=== PATIENT | female | born 1950 | race Caucasian/White ===

== ENCOUNTER 2024-03-28 22:31 | Emergency (ER) | payer MEDICARE, SELFPAY ==
[2024-03-28 22:33] VITALS: BP 141/70
[2024-03-28 22:50] LABS: % Basophils 1.2 % (0-2); % Eosinophils 4.8 % (0-6); % Immature Granulocytes 0.2 % (0-0.5); % Lymphocytes 45.5 % (20.5-51.1); % Monocytes 7.2 % (1.7-9.3); % Neutrophils 41.1 % (42.2-75.2); Absolute Basophils 0.1 10^3/uL (0-0.2); Absolute Eosinophils 0.2 10^3/uL (0-0.7); Absolute Lymphocytes 2.3 10^3/uL (1.2-3.4); Absolute Monocytes 0.4 10^3/uL (0.1-0.6); Absolute Neutrophils 2.1 10^3/uL (1.4-6.5); Hemoglobin 13.9 g/dL (12.0-16.0); Mean Corp Hgb Conc. 35.6 g/dL (33.0-37.0); Mean Corpuscular Hgb 34.2 pg (27.0-31.0); Mean Corpuscular Volume 96.1 fL (81.0-99.0); Mean Platelet Volume 9.4 fL (7.4-10.4); Nucleated Red Blood Cells % 0 %; Platelet Count 243 10^3/uL (130-400); Red Blood Cell Count 4.06 10^6/uL (4.20-5.40)
[2024-03-28 23:00] VITALS: BP 141/62
--- NOTE | 2024-03-28 23:03 | ED.GENMED ---
History of Present Illness
<Qiana Diehl MD, Resident - Last Filed: 03/29/24 03:25>
General
Chief Complaint: Heart Rate Problem
Source: patient and family
Exam Limitations: none
Time Seen by Provider: 03/28/24 22:54
Travel History
Have you traveled to any high risk areas for coronavirus over the past 14 days?: No
Have you had any contact with someone who has COVID-19?: No
Do you have any symptoms of coronavirus? Fever > 100 degrees, chills, cough, shortness of breath, sore throat, loss of taste or smell, muscle aches, or headache?: No
History of Present Illness
History of Present Illness:
73-year-old female who never saw a physician for the last 30 years, no known significant past medical history [place] Patient had a syncopal episode while sitting down. Patient stated that she did not have any preceding
warning signs or symptoms, was sitting down in a chair playing with her grandchildren, drinking her 4/fifth glass of wine and was suddenly noted to be lethargic by her family. Patient was not aware of her syncopal episode however family states that
they noticed her to be lethargic and when they saw her she was unresponsive, rolling her eyes, with cold and clammy extremities and an open mouth but no tongue biting or shaking of limbs. They took her down from the chair laid her on the floor and
tried to check for jugular pulse and wake her up. She eventually woke up and was able to answer all orientation questions right. There is no bowel or bladder incontinence during the episode. The total time between onset of episode to when she
woke up was about 2 to 5 minutes. She denies having chest pain, palpitations, shortness of breath on exertion, orthopnea, PND, lightheadedness, dizziness, headaches, blurring of vision, sick contacts around her. Also denies any recent change in
the bladder habits or bowel habits.
No similar episodes in the past.
If applicable-neuro sx onset
Onset of symptoms known: Yes
Date of onset of symptoms: 03/28/24
Time pt last seen normal is known: Yes
Date last time pt seen normal: 03/28/24
Past History
<Qiana Diehl MD, Resident - Last Filed: 03/29/24 03:25>
Past History
ED Past Medical History: None
Patient has exhibited threatening behavior?: No
Social History
Tobacco: Non-smoker
Alcohol: Daily (2-3 glasses, 5 ounces each - wine.)
Drug: None
Personal:
Living: other (Lives with her , visiting [place] from [place])
Employment: Retired
Family History
Family History: Unable to obtain
Review of Systems
<Qiana Diehl MD, Resident - Last Filed: 03/29/24 03:25>
Review of Systems
Allergies reviewed?: Yes
Other source history: family
Constitutional: Reports no symptoms
EENT: Reports no symptoms
Respiratory: Reports no symptoms
Cardiac: Reports no symptoms
ABD/GI: Reports no symptoms
: Reports no symptoms
Musculoskeletal: Reports no symptoms
Neurological: Reports other (Single syncopal episode)
Endocrine: Reports no symptoms
Hematologic/Lymphatic: Reports no symptoms
Psychiatric: Reports no symptoms
Phy Exam
<Qiana Diehl MD, Resident - Last Filed: 03/29/24 03:25>
General Physical Exam
General Presentation: well appearing and no apparent distress
General Skin: warm and cool
General Habitus: normal
General Mental: alert
General Hydration: appears well hydrated
ENT Exam
ENT Exam: EOMI, TM's normal, pharynx normal and neck supple
Eye Exam
Eye Exam: PERRL and EOMI
Cardiovascular Exam
Cardiovascular Exam: regular rate/rhythm, no edema, no gallop, no JVD and no murmur
Heart Sounds: normal
Pulmonary Exam
Pulmonary Exam: lungs clear, no respiratory distress, no rales, no crackles and no rhonchi
Respirations: other (Not labored)
Gastrointestinal Exam
Gastrointestinal Exam: normal bowel sounds, non tender, soft, no organomegaly and non distended
Neurological Exam
Neurological Exam: alert, CN II-XII intact, no motor deficits, normal reflexs, cerebellum intact and other (welder gas strength in the left extremity - 3/5)
NIH Stroke Score
Level of Consciousness: 0 - Alert
LOC questions: 0-Answers both correctly
LOC Commands: 0-Performs both correctly
Best Gaze: 0-Normal
Visual Granados: 0=Normal, no visual loss
Facial palsy: 0=Normal, symmetrical
Motor - Right Arm: 0=No drift 10 seconds
Motor - Left Arm: 0=No drift 10 seconds
Motor - Right Le-No drift 5 seconds
Motor - Left Le-No drift 5 seconds
Limb Ataxia: 0-Absent
Sensation: 0-Normal
Best Language: 0-No aphasia
Dysarthria: 0-Normal
Extinction and Inattention: 0-No abnormality
Total Score:: 0
Cranial
Cranial Nerves: normal
Motor
Seizure Activity: none
Gait: normal
Tremors: none
Other Movement Disorders: none
Right upper extremity: 5
Right lower extremity: 5
Left upper extremity: 5
Left lower extremity: 5
Reflexes
Babinski: normal: Bilateral
Skin Exam
Skin Exam: normal color and no rash
Psychiatric Exam
Psychiatric Exam: normal mood/affect
<Caroline Montenegro MD - Last Filed: 03/29/24 00:25>
NIH Stroke Score
Total Score:: 0
Course
<Qiana Diehl MD, Resident - Last Filed: 03/29/24 03:25>
Orders/Labs/Results
Orders:
Orders
03/28/24 22:32
Electrocardiogram (*1) Urgent
Reason for Study: Bradycardia / Tachycardia
03/28/24 22:33
EKG- Treatment ONCE
03/28/24 22:43
Complete Blood Count/With Diff Urgent
Comprehensive Metabolic Panel Urgent
03/28/24 23:45
Troponin I Urgent
03/29/24 00:01
Add On- LAB Urgent
Tests Added?: D-dimer
03/29/24 00:10
D-Dimer Stat
03/29/24 00:24
0.9% Sodium Chloride 1000 ml [Nss] 1,500 ml IV BOLUS
03/29/24 01:23
CT Chest Pe Study Urgent
Comment:
Reason For Exam: syncope
Abnormal Lab Results
03/28/24 03/29/24
22:43 00:10
RBC 4.06 L 10^6/uL
(4.20-5.40)
MCH 34.2 H pg
(27.0-31.0)
Neutrophils % 41.1 L %
(42.2-75.2)
D-Dimer 1.40 H ug/mlFEU
(0.00-0.50)
BUN 22 H mg/dl
(7-17)
Creatinine 1.2 H mg/dL
(0.6-1.0)
Glucose 106 H mg/dl
(70-99)
03/28/24 22:43
03/28/24 22:43
Vital Signs
Initial and Last Documented VS:
Initial Vital Signs
Pulse Resp BP Pulse Ox
68 17 141/70 99
03/28/24 22:33 03/28/24 22:33 03/28/24 22:33 03/28/24 22:33
Last Documented Vital Signs
Pulse Resp BP Pulse Ox
85 18 138/73 97
03/29/24 01:45 03/29/24 01:45 03/29/24 01:00 03/29/24 01:15
Comment
Comment:
Wet read of CT chest PE protocol-negative.
<Caroline Montenegro MD - Last Filed: 03/29/24 00:25>
Orders/Labs/Results
Orders:
Orders
03/28/24 22:32
Electrocardiogram (*1) Urgent
Reason for Study: Bradycardia / Tachycardia
03/28/24 22:33
EKG- Treatment ONCE
03/28/24 22:43
Complete Blood Count/With Diff Urgent
Comprehensive Metabolic Panel Urgent
03/28/24 23:45
Troponin I Urgent
03/29/24 00:01
Add On- LAB Urgent
Tests Added?: D-dimer
03/29/24 00:10
D-Dimer Stat
03/29/24 00:24
0.9% Sodium Chloride 1000 ml [Nss] 1,500 ml IV BOLUS
03/29/24 01:23
CT Chest Pe Study Urgent
Comment:
Reason For Exam: syncope
Abnormal Lab Results
03/28/24 03/29/24
22:43 00:10
RBC 4.06 L 10^6/uL
(4.20-5.40)
MCH 34.2 H pg
(27.0-31.0)
Neutrophils % 41.1 L %
(42.2-75.2)
D-Dimer 1.40 H ug/mlFEU
(0.00-0.50)
BUN 22 H mg/dl
(7-17)
Creatinine 1.2 H mg/dL
(0.6-1.0)
Glucose 106 H mg/dl
(70-99)
03/28/24 22:43
03/28/24 22:43
Vital Signs
Initial and Last Documented VS:
Initial Vital Signs
Pulse Resp BP Pulse Ox
68 17 141/70 99
03/28/24 22:33 03/28/24 22:33 03/28/24 22:33 03/28/24 22:33
Last Documented Vital Signs
Pulse Resp BP Pulse Ox
85 18 138/73 97
03/29/24 01:45 03/29/24 01:45 03/29/24 01:00 03/29/24 01:15
<Qiana Diehl MD, Resident - Last Filed: 03/29/24 03:25>
MDM/Problems Addressed
Differential Diagnosis Includes:
PE versus dehydration versus alcohol consumption.
MDM/Problems Addressed:
Dehydration is addressed
<Qiana Diehl MD, Resident - Last Filed: 03/29/24 03:25>
Comment
Comment:
CT chest PE protocol negative for pulmonary embolism
Dehydration as evident by ERICK
Patient's baseline alcohol consumption is 2 to 3 glasses of wine every day. Hence did not obtain alcohol levels.
ERICK is treated with IV fluid NS hydration
*EKG
Interpreted by ED Provider?: Yes
EKG Intrepretation Date: 03/28/24
EKG Intrepretation Time: 22:32
Interpretation: normal
Rate: normal
Rhythm: sinus
[place]: normal axis
Interval: normal QT interval and normal [place] interval
QRS Pattern: normal QRS
Ischemia: no ischemia
*Critical Care Note
Total Time (30-74mins, 75-104mins- exclusive of procedures): Not Applicable
Data Reviewed
Review of Other/Old Records Reveals: Labs, Radiology Studies and Testing
Source: patient
<Qiana Diehl MD, Resident - Last Filed: 03/29/24 03:25>
Update Note
Update Note:
CT PE negative.
ERICK suspect secondary to dehydration, patient was given 1500 mL of IV fluid-0.9% NS
Updated patient on the treatment plan.
ED Attending Note
<Qiana Diehl MD, Resident - Last Filed: 03/29/24 03:25>
-
Portions of this chart may have been created with voice recognition software.� Occasional wrong word or��sound alike� substitutions may have occurred due to the inherent limitations of voice recognition software.
<Caroline Montenegro MD - Last Filed: 03/29/24 00:25>
ED Attending Note
Patient seen and examined by attending physician: Yes
I performed the substantive portion of visit, reviewed & personally made and approve the management plan that is documented in note by myself or ARNIE.: Yes
I performed a history and physical exam of patient and discussed management with resident, I reviewed resident's note and agree with documented findings and plan of care.: Yes
ED Attending Note:
73-year-old female presents emergency department after suspected syncopal event. She was drinking wine today, on her fifth glass which is more than her typical intake, and was playing with her grandchild. She tried to replicate a move that her
granddaughter was doing whereby she stood up from a crosslegged sitting position and she fell to the side and needed to catch herself with an outstretched hand. She denies hitting her head. She then stood up and felt like she might of had too much
wine and decided to sit down. Her next memory was waking up on the ground. Family who is at bedside state that they noticed that she had her eyes open, but was slumped over to the side sort of mumbling. They lowered her down to the ground,
checked for a pulse, and states that within 45 seconds she 'came to' without disorientation or confusion. No history of chest pain, palpitations, dyspnea, incontinence, tongue biting, tonic-clonic activity, fever, chills, nausea, vomiting, urinary
symptoms, neck pain, or other complaints. Patient is without symptoms now except wanting to sleep. On exam, patient has very mild tenderness to palpation and swelling noted of the dorsal aspect of the left wrist with full range of motion, no
tenderness to palpation at snuffbox, hand, elbow, etc. Exam otherwise completely unremarkable, no tongue laceration/abrasion, no signs of head or facial injury, heart without murmur, etc. Patient presents to the Emergency Department with
change in level of consciousness
Number and Complexity of Problems Addressed at the Encounter
� Chronic conditions affecting care:
� Acute Exacerbation and/or Progression of Chronic Illness:
� Differential Diagnosis includes: But not limited to excessive alcohol intake, dehydration, vasovagal events, seizure, stroke, arrhythmia, etc. etc.
Amount and/or Complexity of Data to be Reviewed and Analyzed
� I performed an independent evaluation of and my interpretation is:
EKG: Read by me, normal sinus rhythm, normal rate, normal axis, no acute ischemia
CT:
Xrays:
Laboratory Studies:
Other:
� Review of other/old records reveals: None available
� Clinical information was obtained by an independent historian: Family who is bedside
� Prescriptions/Medications Considered but not given:
� Further testing considered but not performed:
Risk of Complications and/or Morbidity or Mortality of Patient Management
� Social determinants of health affecting care:
� Discussion with other providers (PCP, Hospitalists, Consultants, etc):
� Escalation of care including admission/observation vs risk of discharge considered:
Discharge Plan
Departure
Patient Disposition: Home (Routine Discharge)
Date of Disposition: 03/29/24
Time of Disposition: 03:24
Patient with high blood pressure during this ER visit?: Yes
Condition: Good
Covid-19: Not Applicable
Discharge Problem:
Syncope and collapse
Instructions: BLOOD PRESSURE, Syncope (Fainting) (DC)
Referrals:
NONE,* [Family Provider] -
Activity Restrictions/Additional Instructions:
Repeat CMP to assess for renal function in 1 to 2 weeks.
Please establish care with a primary care physician.
Interventions
Interventions:
*Risk Screen - Suicide Last Done: 03/28/24 23:17
*General Assessment Last Done: 03/28/24 23:17
*Neglect/Abuse Screening Last Done: 03/28/24 23:17
*ED COVID-19 Vaccine History Last Done: 03/28/24 22:40
ED- Cardiac Assessment Last Done: 03/28/24 22:40
ED- Pulmonary Assessment Last Done: 03/28/24 22:40
Discharge Date and Time
Print Language: BERMUDIAN
[2024-03-28 23:05] LABS: ALT (SGPT) 35 U/L (0-35); AST (SGOT) 28 U/L (14-36); Albumin 4.6 g/dl (3.5-5.0); Alkaline Phosphatase 48 U/L (38-126); Blood Urea Nitrogen 22 mg/dl (7-17); Calcium 9.8 mg/dl (8.4-10.2); Carbon Dioxide 22 mmol/L (22-30); Chloride 104 mmol/L (98-107); Glucose 106 mg/dl (70-99); Potassium 3.8 mmol/L (3.5-5.1); Sodium 141 mmol/L (135-145); Total Bilirubin 0.2 mg/dl (0.2-1.3); Total Protein 7.7 g/dl (6.3-8.2)
[2024-03-29] VITALS: BP 150/73
[2024-03-29 00:19] LABS: Troponin I 0.018 ng/ml
[2024-03-29] MEDS: NSS 1500 IV (00:25)
[2024-03-29 01:00] VITALS: BP 138/73
[2024-03-29 03:35] VITALS: BP 184/82
== END 2024-03-29 03:41 | disposition home or self-care (01) ==
LOC: EMR 22:31
PROVIDERS: Student in an Organized Health Care Education/Training Program; EMERGENCY PHYSICIAN Emergency Medicine
DX: R55 Syncope and collapse (principal); Y93.89 Activity, other specified; E86.0 Dehydration; F10.90 Alcohol use, unspecified, uncomplicated; R03.0 Elevated blood-pressure reading, without diagnosis of hypertension; Z88.1 Allergy status to other antibiotic agents
CPT/HCPCS: 99284; 96360; 71275; 80053; 84484; 85025; 85379; 93005; Q9967